=== PATIENT | male | born 1985 | race Two or more races ===

== ENCOUNTER 2019-06-23 22:44 | Emergency (ER) | payer OTHER ==
[~2019-06-23] VITALS: Ht 175.3 cm; Wt 72.6 kg
[2019-06-23] MEDS ORDERED: LORAZEPAM INJ 2 MG/ML VIAL IV ONE (23:00)
[2019-06-23] MEDS ORDERED: ONDANSETRON HCL/PF 4 MG/2 ML VIAL IV ONE (23:00)
--- NOTE | 2019-06-23 23:07 | NUR ---
PT CAME TO ER BED 3 BIB RA C/O WEAKNESS AND TINGLING AND NUMB SENSATION IN BOTH UPPER EXTREMITIES. PT ADMITS TO DRINKING ALCHOL, UNKNOWN AMOUNT OF VODKA. AAOX4. NOT IN ANY DISTRESS. BREATHING EVENLY AND UNLABORED. CONNECTED TO MONITOR. Addendum: 06/24/19 at 0351 by MIKY Amendment undone in EDM - 06/24/19 at 0353 by MIKY PATIENT IS SLEEPING COMFORTABLY IN BED 3. EASILY AROUSED THROUGH TACTILE AND VERBAL STIMULI. BREATHING EVENLY AND UNLABORED. CONNECTED TO MONITOR.
--- NOTE | 2019-06-23 23:10 | NUR ---
SEEN AND EXAMINED BY
--- NOTE | 2019-06-23 23:14 | NUR ---
PT UNABLE TO PROVIDE URINE AT THIS TIME. WILL ASK AGAIN TO PROVIDE URINE AT A LATER TIME.
[2019-06-23] MEDS ORDERED: ONDANSETRON HCL/PF 4 MG/2 ML VIAL ONE (23:20)
[2019-06-23] MEDS ORDERED: LORAZEPAM INJ 2 MG/ML VIAL ONE (23:21)
--- NOTE | 2019-06-23 23:22 | NUR ---
IV LINE ESTABLISHED ON THE RIGHT WRIST 20G
[2019-06-23] MEDS ORDERED: FOLIC ACID 1 MG TABLET ONE (23:23)
[2019-06-23 23:26] LABS: BASOPHILS % (AUTO) 0.3 % (0.0-2.0); HEMATOCRIT 40 % (39-51); HEMOGLOBIN 12.3 g/dL (13.5-17.5); LYMPHOCYTES # (AUTO) 0.6 /CMM (0.8-4.8); LYMPHOCYTES % (AUTO) 4.1 % (20.0-44.0); MEAN CORPUSCULAR HGB CONC 31 g/dl (31.0-36.0); MEAN CORPUSCULAR VOLUME 82 fL (80-96); MONOCYTES # (AUTO) 1.1 /CMM (0.1-1.30); MONOCYTES % (AUTO) 7.4 % (2.0-12.0); NEUTROPHILS # (AUTO) 12.5 /CMM (1.8-8.9); NEUTROPHILS % (AUTO) 88.2 % (43.0-81.0); PLATELET COUNT (AUTO) 472 /CMM (150-450); RED BLOOD CELL COUNT(AUTO) 4.92 MIL/uL (4.5-6.0); WHITE BLOOD COUNT (AUTO) 14.2 K/uL (4.3-11.0)
[2019-06-23] MEDS ORDERED: Thiamine 100 MG/ML VIAL ONE (23:26)
[2019-06-23] MEDS ORDERED: IV NS 0.9% 1,000 ML BAG IV ONE (23:30)
[2019-06-23] MEDS ORDERED: FOLIC ACID 1 MG TABLET PO ONE (23:30)
[2019-06-23] MEDS ORDERED: Thiamine 100 MG in IV D5W 50 ML IV SCH (23:30)
--- NOTE | 2019-06-23 23:38 | NUR ---
PT UNABLE TO PROVIDE URINE AT THIS TIME. NOTIFIED.
[2019-06-23 23:47] LABS: CALCIUM, SERUM 8.5 mg/dL (8.5-10.1); CARBON DIOXIDE 24 mmol/L (21-32); CHLORIDE 101 mmol/L (98-107); CREATININE 0.9 mg/dL (0.6-1.3); GLUCOSE 97 mg/dL (74-106); SODIUM SERUM 143 mmol/L (136-145); UREA NITROGEN, BLOOD 10 mg/dL (7-18)
[2019-06-24 00:05] LABS: ALANINE AMINOTRANSFERASE 116 U/L (12-78); ALBUMIN 3.9 g/dL (3.4-5.0); ALCOHOL, BLOOD 380 mg/dL (0-0); ALKALINE PHOSPHATASE 118 U/L (46-116); ASPARTATE AMINOTRANSFERASE 494 U/L (15-37); BILIRUBIN,DIRECT 0.1 mg/dL (0.0-0.2); BILIRUBIN,TOTAL 0.2 mg/dL (0.2-1.0); TOTAL PROTEIN, SERUM 8.6 g/dL (6.4-8.2)
[2019-06-24 00:07] LABS: ACETAMINOPHEN < 2 ug/ml (10-30); SALICYLATE 1.6 mg/dL (2.8-20.0)
--- NOTE | 2019-06-24 00:58 | NUR ---
PER INSURANCE, PT WILL BE TRANSFERRED TO [facility]. PENDING TRANSFER INFORMATION
--- NOTE | 2019-06-24 01:03 | NUR ---
ANDREW CLEMENT ON THE PHONE WITH MECCA CLEMENT FROM [facility]
--- NOTE | 2019-06-24 02:15 | NUR ---
TRANSFER INFORMATION: PT WILL BE TRANSFERRED TO [facility] PER INSURANCE REQUEST BED ASSIGNMENT: [id number] NUMBER FOR REPORT: [phone] ETA 1HR
--- NOTE | 2019-06-24 02:54 | NUR ---
REPORT GIVEN TO PRATIBHA STRONG FOR [facility].
--- NOTE | 2019-06-24 02:55 | NUR ---
Reji wright in [facility] - 06/24/19 at 0256 by NICHOLAS report given to Deirdre STRONG for [facility].
--- NOTE | 2019-06-24 03:40 | NUR ---
JOHN MATHIAS, [facility] [id number]
--- NOTE | 2019-06-24 03:55 | NUR ---
PT SLEEPING COMFORTABLY IN BED 3. EASILY AROUSED THROUGH TACTILE AND VERBAL STIMULI. BREATHING EVENLY AND UNLABORED. NO SOB. CALL LIGHT WITHIN REACH. CONNECTED TO MONITOR.
--- NOTE | 2019-06-24 04:13 | NUR ---
PATIENT LAST RECEIVED ATIVAN 2MG IV AT 2300 OF 06/23/2019. PT STATES HE IS FEELING WITHDRAWAL SYMPTOMS. MD NOTIFIED. MD GAVE VERBAL ORDER TO ADMINISTER 2MG OF IV ATIVAN FOR PATIENT/ WILL CARRY OUT ORDERS.
[2019-06-24] MEDS ORDERED: LORAZEPAM INJ 2 MG/ML VIAL ONE (04:16)
--- NOTE | 2019-06-24 04:19 | NUR ---
URINE COLLECTED AND SENT TO LAB
--- NOTE | 2019-06-24 04:21 | NUR ---
PATIENT MEDICATED ATIVAN 2 MG IV PER VERBAL ORDER.
[2019-06-24 04:29] LABS: APPEARANCE,URINE Clear (CLEAR); BILIRUBIN,URINE Negative (NEGATIVE); BLOOD, URINE Large Ery/uL (NEGATIVE); COLOR,URINE Dark (YELLOW); KETONES,URINE Negative (NEGATIVE); LEUKOCYTE ESTERASE ,URINE Negative (NEGATIVE); NITRITE, URINE Positive (NEGATIVE); PH,URINE 5.5 (5.0-8.0); PROTEIN,URINE >=300 mg/dl (NEGATIVE); UGLUCOSE Negative (NEGATIVE); UROBILINOGEN,URINE 0.2 EU/dL (0.2)
[2019-06-24] MEDS ORDERED: LORAZEPAM INJ 2 MG/ML VIAL IV ONE (04:30)
[2019-06-24 05:33] LABS: BACTERIA,URINE Many /HPF (None Seen); SQUAMOUS EPITHELIAL CELL,UR Rare /HPF (None Seen)
[2019-06-24 05:43] VITALS: BP 139/101
--- NOTE | 2019-06-24 06:08 | NUR ---
[facility] AND TRANSPORT TO [facility] FOR REHAB MEDICINE.
== END 2019-06-24 06:17 | disposition short-term general hospital (02) ==
LOC: ER 22:45
DX: F10.239 Alcohol dependence with withdrawal, unspecified (principal); R25.3 Fasciculation; R56.9 Unspecified convulsions; F41.9 Anxiety disorder, unspecified; Y90.8 Blood alcohol level of 240 mg/100 ml or more; Z59.0 Homelessness
CPT/HCPCS: 36415; 80048; 80076; 80305; 80307; 80329; 81001; 85025; 87086; 96365; 96375; 96376; 99285; G0480; J2060 ×2; J2405; J3411 ×2; J7030; J7060 ×2; 81000-TC

== ENCOUNTER 2019-09-30 20:37 | Emergency (ER) | payer OTHER ==
[~2019-09-30] VITALS: Ht 172.7 cm; Wt 68.0 kg
--- NOTE | 2019-09-30 20:52 | NUR ---
PT BIBRA C/O SUICIDAL IDEATION. PT DENIES HI/HALLUCINATIONS AT THIS TIME. 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 PT AAOX4. CALM AND COOPERATIVE. VITAL SIGNS STABLE. AMBULATORY WITH STEADY GAIT. NO ACUTE DISTRESS NOTED AT THIS TIME. PT PLACED IN GOWN, BELONGINGS COLLECTED AND PLACED IN PATIENT LOCKER. SITTER AT BEDSIDE. WILL CONTINUE TO MONITOR.
--- NOTE | 2019-09-30 20:55 | NUR ---
URINE COLLECTED AND SENT TO LAB
--- NOTE | 2019-09-30 21:14 | NUR ---
DIRECTOR MEDICAL SAFETY AT BEDSIDE FOR BLOOD DRAW
[2019-09-30 21:18] LABS: BASOPHILS # (AUTO) 0.1 /CMM (0.0-0.2); BASOPHILS % (AUTO) 1.6 % (0.0-2.0); EOSINOPHILS % (AUTO) 0.1 % (0.0-6.0); HEMATOCRIT 40 % (39-51); HEMOGLOBIN 12.2 g/dL (13.5-17.5); LYMPHOCYTES # (AUTO) 1.8 /CMM (0.8-4.8); LYMPHOCYTES % (AUTO) 33.2 % (20.0-44.0); MEAN CORPUSCULAR HGB CONC 30 g/dl (31.0-36.0); MEAN CORPUSCULAR VOLUME 79 fL (80-96); MONOCYTES # (AUTO) 0.3 /CMM (0.1-1.30); MONOCYTES % (AUTO) 5.6 % (2.0-12.0); NEUTROPHILS # (AUTO) 3.1 /CMM (1.8-8.9); NEUTROPHILS % (AUTO) 59.5 % (43.0-81.0); PLATELET COUNT (AUTO) 566 /CMM (150-450); RED BLOOD CELL COUNT(AUTO) 5.05 MIL/uL (4.5-6.0); WHITE BLOOD COUNT (AUTO) 5.3 K/uL (4.3-11.0)
[2019-09-30 21:22] LABS: APPEARANCE,URINE Clear (CLEAR); BILIRUBIN,URINE Negative (NEGATIVE); BLOOD, URINE Negative Ery/uL (NEGATIVE); COLOR,URINE Yellow (YELLOW); KETONES,URINE Negative (NEGATIVE); LEUKOCYTE ESTERASE ,URINE Negative (NEGATIVE); NITRITE, URINE Negative (NEGATIVE); PH,URINE 5.5 (5.0-8.0); PROTEIN,URINE Negative (NEGATIVE); UGLUCOSE Negative (NEGATIVE); UROBILINOGEN,URINE 0.2 EU/dL (0.2)
[2019-09-30 21:25] LABS: CALCIUM, SERUM 8.2 mg/dL (8.5-10.1); POTASSIUM 3.5 mmol/L (3.5-5.1)
[2019-09-30 21:38] LABS: BILIRUBIN,DIRECT 0.1 mg/dL (0.0-0.2); BILIRUBIN,TOTAL 0.2 mg/dL (0.2-1.0); TOTAL PROTEIN, SERUM 7.9 g/dL (6.4-8.2)
--- NOTE | 2019-09-30 23:47 | NUR ---
PT RESTING COMFORTABLY IN BED. VITAL SIGNS STABLE. SITTER AT BEDSIDE. WILL CONTINUE TO MONITOR
--- NOTE | 2019-10-01 00:43 | NUR ---
PT ON CONSTANT OBSERVATION AND RESTING COMFORTABLY IN BED. VSS. NO ACUTE DISTRESS NOTED. 1:1 SITTER AT BEDSIDE FOR SAFETY
[2019-10-01] MEDS ORDERED: LORAZEPAM 1 MG TABLET ONE (01:21)
[2019-10-01] MEDS ORDERED: LORAZEPAM 1 MG TABLET PO ONE (01:30)
--- NOTE | 2019-10-01 01:57 | NUR ---
PT GIVEN FOOD. AWAKE.
--- NOTE | 2019-10-01 03:46 | NUR ---
PT ON CONSTANT OBSERVATION AND RESTING COMFORTABLY IN BED. VSS. NO ACUTE DISTRESS NOTED. 1:1 SITTER AT BEDSIDE FOR SAFETY
--- NOTE | 2019-10-01 06:57 | NUR ---
PT ASLEEP. EASILY AROUSED. VSS. PROVIDED WITH BLANEKTS.
--- NOTE | 2019-10-01 08:22 | NUR ---
PROVIDED W BREAKFAST TRAY, TOLERATED PO WELL
--- NOTE | 2019-10-01 08:47 | NUR ---
ADMIN SONIA NASH AT BEDSIDE, PATIENT STATES HE'S NOT SUICIDAL ANYMORE. MADE AWARE
--- NOTE | 2019-10-01 08:52 | NUR ---
PATIENT AMBULATED W STEADY GAIT
--- NOTE | 2019-10-01 09:05 | NUR ---
Patient given written and verbal discharge instructions. Patient verbalizes understanding of instructions. Patient is ambulatory with steady gait. Refuses offer of custodial placement. Patient given list of available shelters in surrounding area. Patient does not have fixed abode, patient states will go to his brother. Signed homeless waiver form. Tap card provided, name band removed. All belongings returned to patient.
[2019-10-01 09:07] VITALS: BP 121/64
== END 2019-10-01 09:07 | disposition home or self-care (01) ==
LOC: ER 20:37
DX: F10.239 Alcohol dependence with withdrawal, unspecified (principal); I10 Essential (primary) hypertension; F32.9 Major depressive disorder, single episode, unspecified; Z59.0 Homelessness; Y90.8 Blood alcohol level of 240 mg/100 ml or more
CPT/HCPCS: 36415; 80048; 80076; 80305; 80307; 80329; 81001; 85025; 99285; G0480; 81000-TC

== ENCOUNTER 2019-10-01 14:28 | Emergency (ER) | payer OTHER ==
[~2019-10-01] VITALS: Ht 167.6 cm; Wt 76.2 kg
--- NOTE | 2019-10-01 14:30 | NUR ---
PT BIB FROM THE STREETS TO ER BED 14. PER EMS REPORT, FOUND W/ AN EMPTY VODKA BOTTLE. STABLE VITALS. BG [employer]. PT WAS DISCHARGE THIS MORNING FROM ED. GOWNED AND PLACED ON MONITOR. AWAITING MD HARRIS.
--- NOTE | 2019-10-01 14:35 | NUR ---
DR MARTEL AT BEDSIDE FOR EVAL.
[2019-10-01 15:53] LABS: APPEARANCE,URINE Clear (CLEAR); BILIRUBIN,URINE Negative (NEGATIVE); BLOOD, URINE Small Ery/uL (NEGATIVE); COLOR,URINE Yellow (YELLOW); KETONES,URINE Negative (NEGATIVE); LEUKOCYTE ESTERASE ,URINE Negative (NEGATIVE); NITRITE, URINE Negative (NEGATIVE); PROTEIN,URINE Negative (NEGATIVE); UGLUCOSE Negative (NEGATIVE); UROBILINOGEN,URINE 0.2 EU/dL (0.2)
[2019-10-01 16:04] LABS: BASOPHILS # (AUTO) 0.1 /CMM (0.0-0.2); BASOPHILS % (AUTO) 1.1 % (0.0-2.0); EOSINOPHILS % (AUTO) 0.1 % (0.0-6.0); HEMATOCRIT 40 % (39-51); HEMOGLOBIN 11.9 g/dL (13.5-17.5); LYMPHOCYTES # (AUTO) 2.4 /CMM (0.8-4.8); LYMPHOCYTES % (AUTO) 38.7 % (20.0-44.0); MEAN CORPUSCULAR HGB CONC 30 g/dl (31.0-36.0); MEAN CORPUSCULAR VOLUME 78 fL (80-96); MONOCYTES # (AUTO) 0.3 /CMM (0.1-1.30); MONOCYTES % (AUTO) 4.3 % (2.0-12.0); NEUTROPHILS # (AUTO) 3.5 /CMM (1.8-8.9); NEUTROPHILS % (AUTO) 55.8 % (43.0-81.0); PLATELET COUNT (AUTO) 568 /CMM (150-450); RED BLOOD CELL COUNT(AUTO) 5.06 MIL/uL (4.5-6.0); WHITE BLOOD COUNT (AUTO) 6.3 K/uL (4.3-11.0)
[2019-10-01 16:09] LABS: CALCIUM, SERUM 8.3 mg/dL (8.5-10.1); POTASSIUM 4.1 mmol/L (3.5-5.1)
[2019-10-01 16:16] LABS: BACTERIA,URINE Few /HPF (None Seen); MUCUS,URINE Rare /LPF (None Seen); SQUAMOUS EPITHELIAL CELL,UR Rare /HPF (None Seen); WBC,URINE 0-2 /HPF (0-3)
[2019-10-01 16:16] LABS: ALBUMIN 3.8 g/dL (3.4-5.0); BILIRUBIN,TOTAL 0.1 mg/dL (0.2-1.0); TOTAL PROTEIN, SERUM 7.5 g/dL (6.4-8.2)
--- NOTE | 2019-10-01 16:20 | NUR ---
PT SLEEPING IN BED. ON MONITOR, VSS WILL CONTINUE TO MONITOR.
--- NOTE | 2019-10-01 19:16 | NUR ---
REPORT TO GISELE ROBERSON RN FOR [facility].
--- NOTE | 2019-10-01 19:27 | NUR ---
RECEIVED REPORT FROM TAE VAZQUEZ FOR [facility], PT IS AAOX4, NOT IN RESPIRATORY DISTRESS, NOTED BP OF 96/50 MD AWARE, 1 LITER OF NS GIVEN ORDERED BY .
[2019-10-01] MEDS ORDERED: IV NS 0.9% 1,000 ML BAG IV ONE (19:30)
--- NOTE | 2019-10-02 00:15 | NUR ---
PT ASLEEP ON BED EASILY AROUSABLE, NOT IN RESPIRATORY DISTRESS, V/S STABLE, KEPT RESTED AND COMFORTABLE, WILL CONTINUE TO MONITOR.
[2019-10-02 06:09] VITALS: BP 129/73
--- NOTE | 2019-10-02 06:29 | NUR ---
IV removed. Catheter intact and site benign. Pressure and 4x4 applied to site. No bleeding noted.
--- NOTE | 2019-10-02 06:29 | NUR ---
Patient given written and verbal discharge instructions. Patient verbalizes understanding of instructions. Patient is ambulatory with steady gait. Refuses offer of alf placement. Patient given list of available shelters in surrounding area.
== END 2019-10-02 06:31 | disposition home or self-care (01) ==
LOC: ER 14:30
DX: F10.129 Alcohol abuse with intoxication, unspecified (principal); R41.0 Disorientation, unspecified; I10 Essential (primary) hypertension; F32.9 Major depressive disorder, single episode, unspecified; G62.9 Polyneuropathy, unspecified; Z59.0 Homelessness; Y90.8 Blood alcohol level of 240 mg/100 ml or more
CPT/HCPCS: 36415; 80048; 80076; 80307; 81001; 85025; 96360; 99285; J7030; 81000-TC

== ENCOUNTER 2021-05-25 17:22 | Emergency (ER) | payer OTHER ==
[~2021-05-25] VITALS: Ht 167.6 cm; Wt 77.1 kg
[2021-05-25 17:23] VITALS: BP 116/88
--- NOTE | 2021-05-25 17:40 | NUR ---
Called to room pt. NOT in [facility]. [facility] ED Provider SENIOR EDITOR Kestenian aware
== END 2021-05-25 17:44 | disposition home or self-care (01) ==
LOC: ER 17:22
DX: Z53.21 Procedure and treatment not carried out due to patient leaving prior to being seen by health care provider (principal); I10 Essential (primary) hypertension; F32.9 Major depressive disorder, single episode, unspecified

== ENCOUNTER 2021-06-13 13:04 | Emergency (ER) | payer OTHER ==
[~2021-06-13] VITALS: Ht 167.6 cm; Wt 81.6 kg
--- NOTE | 2021-06-13 13:17 | NUR ---
PT ALTAF Posada FROM THE STREET C/O ABDOMINAL PAIN, ADMITS TO ETOH, WAS JUST DC FROM [facility] FOR SAME REASON. TOLERATING R/A WELL WITH NO SOB. CONNECTED PT TO POX AND MONITOR
--- NOTE | 2021-06-13 14:02 | NUR ---
TO ER BED 11,AMBULATORY,STEADY GAIT,NO APPARENT CHANGE IN CONDITION
[2021-06-13] MEDS ORDERED: CHLO25CA22 PO (14:20)
[2021-06-13] MEDS ORDERED: LEVE1000 PO (14:20)
[2021-06-13] MEDS ORDERED: LEVETIRACETAM (250 MG) 250 MG TABLET PO ONE ×2 (14:27→14:30)
[2021-06-13] MEDS ORDERED: LORAZEPAM INJ 2 MG/ML VIAL ONE ×4 (14:28→21:53)
[2021-06-13] MEDS ORDERED: LORAZEPAM INJ 2 MG/ML VIAL IM ONE ×3 (14:30→21:00)
--- NOTE | 2021-06-13 14:43 | NUR ---
KEPPRA 1000 MG PO NOT ADMINISTERED DUE TO PATIENT IS NOT BEING ALERT. DR REY MADE AWARE.
[2021-06-13] MEDS ORDERED: Thiamine 100 MG in IV D5W 50 ML IV SCH (15:00)
[2021-06-13] MEDS ORDERED: LEVETIRACETAM (500MG) 1,000 MG in IV NS 0.9% 100 ML IV SCH (15:00)
--- NOTE | 2021-06-13 17:10 | NUR ---
NIKOLAS MIDLINE #18G INSERTED BY SHELBIE LUCIO. PATENT AND INTACT
--- NOTE | 2021-06-13 18:00 | NUR ---
THE PATIENT IS ALERT AND ORIENTED X3. DENIES PAIN. IN ROOM AIR AND DENIES SOB. RESPIRATION REGULAR AND UNLABORED. REMAINS ATTACHED TO THE MONITOR.
--- NOTE | 2021-06-13 20:45 | NUR ---
PT IN BED EATING DINNER, NO SHAKINESS OR PRESPIRATION NOTED. TOELRATING R/A WELL WITH NO SOB. VSS
[2021-06-14 01:33] VITALS: BP 134/66
--- NOTE | 2021-06-14 01:33 | NUR ---
Patient discharged to home in stable condition. Written and verbal after care instructions given. Patient verbalizes understanding of instruction.
== END 2021-06-14 01:33 | disposition home or self-care (01) ==
LOC: ER 13:07
DX: F10.239 Alcohol dependence with withdrawal, unspecified (principal); R10.9 Unspecified abdominal pain; Z59.00 Homelessness unspecified
CPT/HCPCS: 96365; 96367; 96372 ×2; 99285; J1953; J2060 ×2; J3411; J7030; J7060

== ENCOUNTER 2021-07-03 20:05 | Emergency (ER) | payer OTHER ==
[~2021-07-03] VITALS: Ht 172.7 cm; Wt 88.5 kg
[~2021-07-03 20:05] MED LIST: CHLO25CA22 PO; LEVE1000 PO
[2021-07-03 21:02] LABS: BASOPHILS # (AUTO) 0.1 K/uL (0.0-0.2); BASOPHILS % (AUTO) 1.1 % (0.0-2.0); HEMATOCRIT 31 % (39-51); HEMOGLOBIN 9.8 g/dL (13.5-17.5); LYMPHOCYTES # (AUTO) 0.9 K/uL (0.8-4.8); MEAN CORPUSCULAR HGB CONC 32 g/dl (31.0-36.0); MEAN CORPUSCULAR VOLUME 78 fL (80-96); MONOCYTES # (AUTO) 0.2 K/uL (0.1-1.30); MONOCYTES % (AUTO) 2.6 % (2.0-12.0); NEUTROPHILS # (AUTO) 5.5 K/uL (1.8-8.9); NEUTROPHILS % (AUTO) 82.3 % (43.0-81.0); PLATELET COUNT (AUTO) 449 K/uL (150-450); RED BLOOD CELL COUNT(AUTO) 3.93 MIL/uL (4.5-6.0); WHITE BLOOD COUNT (AUTO) 6.7 K/uL (4.3-11.0)
--- NOTE | 2021-07-03 21:04 | NUR ---
URINE COLLECTED AND SENT TO LAB
[2021-07-03 21:12] LABS: CALCIUM, SERUM 7.4 mg/dL (8.5-10.1); CARBON DIOXIDE 22 mmol/L (21-32); CHLORIDE 105 mmol/L (98-107); CREATININE 0.8 mg/dL (0.6-1.3); GLUCOSE 80 mg/dL (74-106); POTASSIUM 3.6 mmol/L (3.5-5.1); SODIUM SERUM 145 mmol/L (136-145); UREA NITROGEN, BLOOD 11 mg/dL (7-18)
[2021-07-03 21:19] LABS: ALANINE AMINOTRANSFERASE 44 U/L (12-78); ALBUMIN 3.5 g/dL (3.4-5.0); ALCOHOL, BLOOD 445 mg/dL (0-0); ALKALINE PHOSPHATASE 127 U/L (46-116); ASPARTATE AMINOTRANSFERASE 48 U/L (15-37); BILIRUBIN,DIRECT 0.1 mg/dL (0.0-0.2); BILIRUBIN,TOTAL 0.2 mg/dL (0.2-1.0); TOTAL PROTEIN, SERUM 7.3 g/dL (6.4-8.2)
[2021-07-03 21:21] LABS: ACETAMINOPHEN < 0 ug/ml (10-30)
[2021-07-03 22:11] LABS: BILIRUBIN,URINE NEGATIVE (NEGATIVE); COLOR,URINE YELLOW (YELLOW); LEUKOCYTE ESTERASE ,URINE NEGATIVE (NEGATIVE); NITRITE, URINE NEGATIVE (NEGATIVE); PROTEIN,URINE NEGATIVE (NEGATIVE); UGLUCOSE NEGATIVE (NEGATIVE); UROBILINOGEN,URINE 0.2 EU/dL (0.2)
--- NOTE | 2021-07-04 06:57 | NUR ---
Patient discharged to home in stable condition. Written and verbal after care instructions given. Patient verbalizes understanding of instruction.
--- NOTE | 2021-07-04 06:57 | NUR ---
PT IS AWAKE, ALERT, OX4. AMBULATORY W/ STEADY GAITS. PO INTAKE TOLERATED WELL. NO N/V/ASPIRATION. REPORTED FEELING WELL AND WILLING TO LEAVE. MADE AWARE. STABLE FOR D/C.
[2021-07-04 06:58] VITALS: BP 119/72
== END 2021-07-04 06:58 | disposition home or self-care (01) ==
LOC: ER 20:30
DX: F10.129 Alcohol abuse with intoxication, unspecified (principal); I10 Essential (primary) hypertension; G62.9 Polyneuropathy, unspecified; F32.9 Major depressive disorder, single episode, unspecified; Z59.00 Homelessness unspecified; Z79.899 Other long term (current) drug therapy; Y90.9 Presence of alcohol in blood, level not specified
CPT/HCPCS: 36415; 80048-TC; 80076-TC; 85025-TC; G0480